=== PATIENT | female | born 1955 | race Asian ===

== ENCOUNTER 2018-03-04 18:44 | Emergency (ER) | payer OTHER ==
[~2018-03-04] VITALS: Ht 157.5 cm; Wt 47.0 kg
[2018-03-04 21:10] VITALS: BP 121/73
== END 2018-03-04 21:10 | disposition home or self-care (01) ==
LOC: ER 18:44
DX: R04.2 Hemoptysis (principal); Z88.5 Allergy status to narcotic agent; Z88.6 Allergy status to analgesic agent
CPT/HCPCS: 71045; 87086; 93005; 99285